=== PATIENT | female | born 1980 | race Caucasian/White ===

== ENCOUNTER 2024-02-06 18:40 | Inpatient (IN) | payer OTHER ==
[~2024-02-06] VITALS: Ht 152.4 cm; Wt 53.9 kg
[2024-02-06 19:36] LABS: BASOPHILS % (AUTO) 0.3 % (0.0-2.0); EOSINOPHILS % (AUTO) 0.4 % (1.0-6.0); HEMATOCRIT 40.8 % (36-46); HEMOGLOBIN 13.6 g/dL (12.0-16.0); LYMPHOCYTES # (AUTO) 0.8 K/uL (1.0-4.8); LYMPHOCYTES % (AUTO) 8.1 % (22.0-44.0); MEAN CORPUSCULAR HGB CONC 33.4 G/dL (31.0-37.0); MEAN CORPUSCULAR VOLUME 90 fL (80-100); MONOCYTES # (AUTO) 0.1 K/uL (0.1-1.0); MONOCYTES % (AUTO) 1.3 % (2.0-9.0); NEUTROPHILS # (AUTO) 8.4 K/uL (1.8-7.7); PLATELET COUNT (AUTO) 355 K/uL (150-450); RED BLOOD CELL COUNT(AUTO) 4.55 MIL/uL (4.00-5.20); RED CELL DISTRIBUTION WIDTH 13.3 % (11.5-14.5); WHITE BLOOD COUNT (AUTO) 9.3 K/uL (4.5-11.0)
[2024-02-06 19:39] LABS: NEUTROPHILS % (AUTO) 89.9 % (40.0-70.0)
[2024-02-06 19:48] LABS: APPEARANCE,URINE HAZY (CLEAR); BILIRUBIN,URINE NEGATIVE (NEGATIVE); COLOR,URINE YELLOW (YELLOW); GLUCOSE, URINE (UA) NEGATIVE (NEGATIVE); LEUKOCYTE ESTERASE ,URINE NEGATIVE (NEGATIVE); NITRATE,URINE NEGATIVE (NEGATIVE); OCCULT BLOOD,URINE LARGE (NEGATIVE); PH,URINE 6.5 (5.0-8.0); PROTEIN,URINE 30-70 mg/dL (NEGATIVE); SPECIFIC GRAVITIY, URINE 1.021 (1.003-1.030); UROBILINOGEN,URINE <=1.0 mg/dL (<=1.0)
[2024-02-06 19:48] LABS: ANION GAP 7 mmol/L (8-16); CALCIUM, TOTAL 9.3 mg/dL (8.8-10.5); CARBON DIOXIDE 27 mmol/L (22-29); CHLORIDE 104 mmol/L (98-107); CREATININE 0.88 mg/dL (0.60-1.30); GLOMERULAR FILTR. RATE CALC > 60 mL/min (>60); GLUCOSE,RANDOM 131 mg/dL (70-110); POTASSIUM 3.8 mmol/L (3.5-5.1); SODIUM SERUM 138 mmol/L (136-145); UREA NITROGEN, BLOOD 12 mg/dL (7-18)
[2024-02-06 19:52] LABS: HCG,QUAL URINE NEGATIVE (NEGATIVE)
[2024-02-06 19:54] LABS: BACTERIA,URINE Few /HPF (None Seen); RBC,URINE 51-100 /HPF (0-2); SQUAMOUS EPITHELIAL CELL,UR Few /LPF (None Seen); WBC,URINE 0-2 /HPF (0-5)
[2024-02-06 19:56] LABS: ALANINE AMINOTRANSFERASE 22 U/L (12-78); ALBUMIN 3.9 g/dL (3.4-5.0); ALKALINE PHOSPHATASE 84 U/L (46-116); ASPARTATE AMINOTRANSFERASE 19 U/L (15-37); BILIRUBIN,TOTAL 0.4 mg/dL (0.1-1.0); LIPASE 30 U/L (16-77); TOTAL PROTEIN, SERUM 8.6 g/dL (6.4-8.2)
[2024-02-06] MEDS: FAMOTIDINE 20 MG/2 ML VIAL IVP ONE (20:13)
[2024-02-06] MEDS: ONDANSETRON HCL 4 MG/2 ML VIAL IVP ONE (20:13)
[2024-02-06] MEDS: KETOROLAC TROMETHAMINE 30 MG/ML VIAL IVP ONE (20:14)
[2024-02-06] MEDS: SODIUM CHLORIDE 0.9% 1,000 ML IV ONE ×2 (20:14→21:04)
[2024-02-06] MEDS ORDERED: IOHEXOL 350 MG/ML 100 ML VIAL ONE ×2 (20:36→21:01)
[2024-02-06] MEDS ORDERED: SODIUM CHLORIDE 0.9% 100 ML ONE ×2 (20:36→21:01)
[2024-02-06] MEDS: MORPHINE SULFATE 2 MG/ML SYRINGE IVP ONE (21:03)
[2024-02-06] MEDS ORDERED: ONDANSETRON HCL 4 MG/2 ML VIAL IVP PRN (21:30)
[2024-02-06] MEDS ORDERED: MORPHINE SULFATE 2 MG/ML SYRINGE IVP PRN (21:30)
[2024-02-06] MEDS ORDERED: NALOXONE HCL 1 MG/ML 2 ML SYRINGE IVP PRN (21:30)
[2024-02-06] MEDS: RINGERS SOLUTION,LACTATED 1,000 ML IV SCH (21:30)
[2024-02-06] MEDS ORDERED: ACETAMINOPHEN 500 MG TABLET PO PRN (21:45)
[2024-02-06] MEDS: TAMSULOSIN HCL 0.4 MG CAPSULE PO ONE (22:18)
[2024-02-06] MEDS: CefTRIAXone 1 GM/DEXTROSE 50 ML IV ONE (22:47)
[2024-02-06 23:30] VITALS: BP 125/96; PULSE 66; RESP 18; TEMP 98; O2SAT 97
[2024-02-07 07:16] LABS: BASOPHILS % (AUTO) 0.5 % (0.0-2.0); EOSINOPHILS % (AUTO) 0.8 % (1.0-6.0); HEMATOCRIT 36.7 % (36-46); HEMOGLOBIN 12.3 g/dL (12.0-16.0); LYMPHOCYTES % (AUTO) 20.9 % (22.0-44.0); MEAN CORPUSCULAR HGB CONC 33.5 G/dL (31.0-37.0); MEAN CORPUSCULAR VOLUME 90 fL (80-100); MONOCYTES # (AUTO) 0.5 K/uL (0.1-1.0); MONOCYTES % (AUTO) 5.3 % (2.0-9.0); NEUTROPHILS # (AUTO) 6.8 K/uL (1.8-7.7); NEUTROPHILS % (AUTO) 72.5 % (40.0-70.0); PLATELET COUNT (AUTO) 332 K/uL (150-450); RED BLOOD CELL COUNT(AUTO) 4.09 MIL/uL (4.00-5.20); RED CELL DISTRIBUTION WIDTH 13.3 % (11.5-14.5); WHITE BLOOD COUNT (AUTO) 9.4 K/uL (4.5-11.0)
[2024-02-07 08:08] LABS: ANION GAP 7 mmol/L (8-16); CALCIUM, TOTAL 8.5 mg/dL (8.8-10.5); CARBON DIOXIDE 25 mmol/L (22-29); CHLORIDE 108 mmol/L (98-107); CREATININE 0.64 mg/dL (0.60-1.30); GLOMERULAR FILTR. RATE CALC > 60 mL/min (>60); GLUCOSE,RANDOM 101 mg/dL (70-110); POTASSIUM 3.4 mmol/L (3.5-5.1); SODIUM SERUM 140 mmol/L (136-145); UREA NITROGEN, BLOOD 8 mg/dL (7-18)
[2024-02-07 08:22] VITALS: BP 120/83; PULSE 60; RESP 19; TEMP 97.8; O2SAT 99
[2024-02-07] MEDS: ACETAMINOPHEN 325 MG TABLET PO PRN (08:42)
[2024-02-07] MEDS: DOCUSATE SODIUM 100 MG CAPSULE PO SCH (08:43)
[2024-02-07] MEDS ORDERED: POTASSIUM CHL 10 MEQ/WATER 50 ML IV PRN (14:30)
[2024-02-07 15:25] VITALS: BP 107/77; PULSE 56; RESP 19; TEMP 98.3; O2SAT 99
[2024-02-07] MEDS: POTASSIUM CHLORIDE 20 MEQ ER TABLET PO PRN (16:58)
[2024-02-07 20:20] VITALS: BP 118/80; PULSE 58; RESP 18; TEMP 98.1; O2SAT 99
[2024-02-07] MEDS: CefTRIAXone 1 GM/DEXTROSE 50 ML IV SCH (23:16)
[2024-02-07] MEDS: HEPARIN SODIUM,PORCINE 5,000 UNITS/ML VIAL SQ SCH (23:16)
[2024-02-08 04:55] VITALS: BP 132/87; PULSE 56; RESP 18; TEMP 97.9; O2SAT 98
[2024-02-08] MEDS ORDERED: CEPH-558 PO (11:11)
[2024-02-08 12:37] LABS: EOSINOPHILS % (AUTO) 5.1 % (1.0-6.0); HEMATOCRIT 42.6 % (36-46); LYMPHOCYTES # (AUTO) 2.8 K/uL (1.0-4.8); LYMPHOCYTES % (AUTO) 38.7 % (22.0-44.0); MEAN CORPUSCULAR HEMOGLOBIN 29.7 pg (26.0-34.0); MEAN CORPUSCULAR HGB CONC 32.9 G/dL (31.0-37.0); MEAN CORPUSCULAR VOLUME 90 fL (80-100); MONOCYTES # (AUTO) 0.4 K/uL (0.1-1.0); MONOCYTES % (AUTO) 4.8 % (2.0-9.0); NEUTROPHILS # (AUTO) 3.7 K/uL (1.8-7.7); NEUTROPHILS % (AUTO) 50.4 % (40.0-70.0); PLATELET COUNT (AUTO) 383 K/uL (150-450); RED BLOOD CELL COUNT(AUTO) 4.71 MIL/uL (4.00-5.20); RED CELL DISTRIBUTION WIDTH 13.3 % (11.5-14.5); WHITE BLOOD COUNT (AUTO) 7.3 K/uL (4.5-11.0)
[2024-02-08 19:29] VITALS: BP 128/86; PULSE 66; RESP 20; TEMP 98.4; O2SAT 98
[2024-02-09 05:10] VITALS: BP 117/72; PULSE 53; RESP 18; TEMP 97.9; O2SAT 96
[2024-02-09 08:34] VITALS: BP 125/82; PULSE 57; RESP 18; TEMP 97.8; O2SAT 95
[2024-02-09 15:26] VITALS: BP 138/94; PULSE 64; RESP 16; TEMP 98.2; O2SAT 97
== END 2024-02-09 16:30 | disposition home or self-care (01) | DRG 463 ==
LOC: EMS 18:40 → EDH 21:27 → 4E 23:37
PROVIDERS: ADMIT Internal Medicine; ATTEND Internal Medicine
DX: N13.6 Pyonephrosis (principal); D72.0 Genetic anomalies of leukocytes; R73.9 Hyperglycemia, unspecified; Z87.442 Personal history of urinary calculi
CPT/HCPCS: 74177; 80048; 80076; 81001; 83690; 83735; 84132; 84703; 85025; 87040; 87086; 99285; G0378; J0696; J1644; J1885; J2270; J2405; J3490; J7030; J7050; J7120